=== PATIENT | male | born 1960 | race Caucasian/White ===

== ENCOUNTER 2019-10-23 20:03 | Emergency (ER) | payer MEDICAID, OTHER ==
[~2019-10-23] VITALS: Ht 167.6 cm; Wt 95.3 kg
[2019-10-23 20:10] VITALS: BP 154/84
--- NOTE | 2019-10-23 20:10 | NUR ---
Pt screened for covid-19, +chronic cough, taken to bed 2.
--- NOTE | 2019-10-23 20:13 | NUR ---
59/M presents to ED via pt's own motorized wheelchair, c/o L sided chest pain radiating to L jaw, L shoulder and L arm, x1.5 hr. Reports SOB. Pt with hx triple cardiac bypass (2019), 6 cardiac stents, multiple CVA (L sided weakness), asthma, COPD, smoker (1/2 ppd). Pt awake and alert, skin flushed warm and dry, Spo2 97% on RA, RR 18 even and mildly labored. Lung sounds clear BL.
--- NOTE | 2019-10-23 20:14 | NUR ---
EKG performed, shown to Dr Ash
--- NOTE | 2019-10-23 20:26 | NUR ---
Dr. Ash examining patient.
[2019-10-23] MEDS ORDERED: fentaNYL 0.05 MG/ML VIAL IVP ONE (20:35)
[2019-10-23] MEDS ORDERED: NACL 0.9% 1,000 ML IV ONE (20:35)
[2019-10-23] MEDS ORDERED: ASPIRIN 81 MG TAB.CHEW PO ONE (20:35)
[2019-10-23 20:54] LABS: BASOPHILS # (AUTO) 0.2 K/uL (0.00-0.22); BASOPHILS % (AUTO) 2.4 % (0.0-2.0); EOSINOPHILS # (AUTO) 0.2 K/uL (0-0.4); EOSINOPHILS % (AUTO) 2.6 % (0.0-4.0); HEMATOCRIT 45.9 % (36-52); HEMOGLOBIN 15.2 g/dL (12.0-18.0); LYMPHOCYTES # (AUTO) 2.3 K/uL (2.0-11.5); LYMPHOCYTES % (AUTO) 28.9 % (20.5-51.1); MEAN CORPUSCULAR HEMOGLOBIN 29 pg (27-31); MEAN CORPUSCULAR HGB CONC 33 g/dL (33-37); MEAN CORPUSCULAR VOLUME 88.1 fL (80-94); MONOCYTES # (AUTO) 0.9 K/uL (0.8-1.0); MONOCYTES % (AUTO) 11.5 % (1.7-9.3); NEUTROPHILS # (AUTO) 4.3 K/uL (1.8-7.7); NEUTROPHILS % (AUTO) 54.6 % (42.2-75.2); PLATELET COUNT (AUTO) 250 K/uL (140-450); RED BLOOD CELL COUNT(AUTO) 5.21 MIL/uL (4.20-6.10); RED CELL DISTRIBUTION WIDTH 14.7 % (11.6-13.7); WHITE BLOOD COUNT (AUTO) 7.8 K/uL (4.8-10.8)
[2019-10-23 21:01] LABS: ANION GAP 15.3 (8-16); CARBON DIOXIDE 25.8 mmol/L (21-32); CREATININE 1.5 mg/dL (0.6-1.3); POTASSIUM 4.1 mmol/L (3.5-5.1)
[2019-10-23] MEDS ORDERED: SULF-58 PO (21:05)
[2019-10-23] MEDS ORDERED: GABA300C PO (21:05)
[2019-10-23] MEDS ORDERED: BENA20TA PO (21:05)
[2019-10-23] MEDS ORDERED: BICT1TAB PO (21:05)
[2019-10-23] MEDS ORDERED: ATOR80TA27 PO (21:05)
[2019-10-23] MEDS ORDERED: NITR0.4T2 SL (21:05)
[2019-10-23] MEDS ORDERED: ISOS20TA13 PO (21:05)
[2019-10-23] MEDS ORDERED: FAMO-90 PO (21:05)
[2019-10-23] MEDS ORDERED: CLON0.1T42 PO (21:05)
[2019-10-23] MEDS ORDERED: LOSA25TA43 PO (21:05)
[2019-10-23] MEDS ORDERED: ASPI81EC19 PO (21:05)
[2019-10-23] MEDS ORDERED: CARV6.25 PO (21:05)
[2019-10-23] MEDS ORDERED: CLOP75TA26 PO (21:05)
--- NOTE | 2019-10-23 21:05 | NUR ---
EKG PERFORMED AT BEDSIDE
[2019-10-23 21:07] LABS: ALBUMIN 3.7 g/dL (3.4-5.0); TOTAL BILIRUBIN 0.5 mg/dL (0.0-1.0)
[2019-10-23 21:08] LABS: PROTHROMBIN TIME 11.3 secs (10.8-13.4)
--- NOTE | 2019-10-23 21:15 | NUR ---
PT RESTING MORE COMFORTABLY, CHEST PAIN 3/10 AFTER MEDS. PT REMAINS ON BEDSIDE MONITOR, O2 @ 2L NC. IV BOLUS INFUSING.
--- NOTE | 2019-10-23 21:33 | NUR ---
SPOKE TO VIOLET OCASIO AT [facility], GAVE REPORT REGARDING PATIENT. WAITING FOR [facility] TRANSPORT.
--- NOTE | 2019-10-23 21:38 | NUR ---
[facility] TRANSPORT AT BEDSIDE
[2019-10-23 21:44] VITALS: BP 148/96
--- NOTE | 2019-10-23 21:47 | NUR ---
Patient to be transferred to [place] [facility]. Is being transferred due to HIGHER LEVEL OF CARE. Receiving facility has accepting physician and available space. ER physician has signed transfer form. Patient or responsible green party has agreed to transfer and signed form. Patient belongings inventoried and will be sent with patient. Copy of nursing notes, lab reports, EKG, Physicians Orders and X-rays to be sent with patient. Report called to VIOLET OCASIO at receiving facility. [facility] ambulance service has been called for transfer. ETA is [id number].
== END 2019-10-23 21:47 | disposition short-term general hospital (02) ==
LOC: MED 20:03
DX: I21.29 ST elevation (STEMI) myocardial infarction involving other sites (principal); J45.909 Unspecified asthma, uncomplicated; F17.210 Nicotine dependence, cigarettes, uncomplicated; Z86.73 Personal history of transient ischemic attack (TIA), and cerebral infarction without residual deficits
CPT/HCPCS: 36415; 71045; 80053; 83880; 84484; 85025; 85610; 85730; 93005; 96374; 99291; J3010; J7030; 99285

== ENCOUNTER 2022-04-29 16:03 | Emergency (ER) | payer OTHER ==
[~2022-04-29] VITALS: Ht 177.8 cm; Wt 83.9 kg
[~2022-04-29 16:03] MED LIST: ASPI81EC19 PO; ATOR80TA27 PO; BENA20TA PO; BICT1TAB PO; CARV6.25 PO; CLON0.1T16 PO; CLOP-68 PO; FAMO-90 PO; GABA300C PO; ISOS20TA13 PO; LOSA25TA43 PO; NITR0.4T2 SL; SULF-58 PO
[2022-04-29 16:04] VITALS: BP 128/80
--- NOTE | 2022-04-29 17:31 | NUR ---
DR NIELSEN ATTEMPTED TO BRING PT BACK, NOT FOUND IN LOBBY/OUTSIDE
--- NOTE | 2022-04-29 17:39 | NUR ---
ATTEMPTED TO BRING PT BACK, NOT FOUND IN LOBBY/OUTSIDE
--- NOTE | 2022-04-29 17:47 | NUR ---
LAST ATTEMPT TO BRING PT BACK, NOT FOUND IN LOBBY/OUTSIDE.PATIENT LEFT WITHOUT BEING SEEN BY DR. NIELSEN. NO FURTHER CARE PROVIDED FOR PATIENT.
== END 2022-04-29 17:31 | disposition left against medical advice (07) ==
LOC: MED 16:03
DX: R10.9 Unspecified abdominal pain (principal); Z53.21 Procedure and treatment not carried out due to patient leaving prior to being seen by health care provider